=== PATIENT | male | born 1940 | race Caucasian/White ===

== ENCOUNTER 2022-07-06 08:05 | Outpatient (CLI) | payer OTHER | END 2022-07-06 08:06 | disposition home or self-care (01) | LOC: CSHMRI 08:05 | PROVIDERS: ATTEND Nurse Practitioner Family | DX: M48.062 Spinal stenosis, lumbar region with neurogenic claudication (principal); M51.36 Other intervertebral disc degeneration, lumbar region; I71.43 Infrarenal abdominal aortic aneurysm, without rupture | CPT/HCPCS: 72148 ==